=== PATIENT | male | born 1955 | race Caucasian/White ===

== ENCOUNTER 2017-08-25 11:10 | Inpatient (IN) | payer MEDICAID, OTHER ==
[2017-08-25 11:42] LABS: ADD MAN DIFF? NO
[2017-08-25 11:45] LABS: BASOPHIL # 0.1 10^3/ul (0.0-0.1); BASOPHILS % 0.9 % (0.0-2.0); EOSINOPHILS # 0.3 10^3/ul (0.0-0.5); EOSINOPHILS % 3.1 % (0.0-7.0); HEMATOCRIT 45.5 % (42.0-52.0); HEMOGLOBIN 16.2 g/dl (14.0-18.0); LYMPHOCYTES # 2.1 10^3/ul (0.8-2.9); LYMPHOCYTES % 23.2 % (15.0-51.0); MEAN CORPUSCULAR HEMOGLOBIN 30.5 pg (29.0-33.0); MEAN CORPUSCULAR HGB CONC 35.6 g/dl (32.0-37.0); MEAN CORPUSCULAR VOLUME 85.7 fl (82.0-101.0); MEAN PLATELET VOLUME 9.6 fl (7.4-10.4); MONOCYTE # 0.7 10^3/ul (0.3-0.9); MONOCYTES % 7.9 % (0.0-11.0); NEUTROPHIL # 5.8 10^3/ul (1.6-7.5); NEUTROPHILS % 64.6 % (39.0-77.0); PLATELET COUNT 257 10^3/UL (140-415); RED BLOOD COUNT 5.31 10^6/ul (4.70-6.10); RED CELL DISTRIBUTION WIDTH 11.9 % (11.5-14.5)
[2017-08-25 11:59] LABS: HEMOGLOBIN A1C 5.7 % (0-5.9)
[2017-08-25 12:02] LABS: ANION GAP 16 (8-16); BLOOD UREA NITROGEN 21 mg/dl (7-20); CALCIUM 9.3 mg/dl (8.4-10.2); CARBON DIOXIDE 25 mmol/L (21-31); CHLORIDE 106 mmol/L (97-110); CREATININE 1.23 mg/dl (0.61-1.24); GLUCOSE 127 mg/dl (70-220); POTASSIUM 4.5 mmol/L (3.5-5.1); SODIUM 142 mmol/L (135-144)
[2017-08-25 12:03] LABS: INR 1.09; PROTIME 14.3 Sec (11.9-14.9); PT RATIO 1.1
[2017-08-25 12:04] LABS: PARTIAL THROMBOPLASTIN TIME 30.3 Sec (25.0-35.0)
[2017-08-25 12:16] LABS: TROPONIN-I < 0.012 ng/ml (0.00-0.12)
[2017-08-25] MEDS: IOHEXOL 0 ML (12:38)
[2017-08-25] MEDS: SOD CHLORIDE 0.9% 100 ML (12:38)
[2017-08-25] MEDS: IODIXANOL LOCM 100 ML BTL (12:38)
[2017-08-25] MEDS: ASPIRIN 325 MG TAB PO ×2 (12:54→13:11)
[2017-08-25 13:00] LABS: ADD UMIC NO; UR ASCORBIC ACID 20 mg/dL (NEGATIVE); UR BILIRUBIN (Dip) NEGATIVE (NEGATIVE); UR BLOOD (Dip) NEGATIVE (NEGATIVE); UR CLARITY CLEAR (CLEAR); UR COLOR YELLOW (YELLOW); UR GLUCOSE (Dip) NEGATIVE (NEGATIVE); UR KETONES (Dip) NEGATIVE (NEGATIVE); UR LEUKOCYTE ESTERASE (Dip) NEGATIVE Leu/ul (NEGATIVE); UR NITRITE (Dip) NEGATIVE (NEGATIVE); UR SPECIFIC GRAVITY (Dip) 1.012 (1.003-1.030); UR TOTAL PROTEIN (Dip) NEGATIVE (NEGATIVE); UR UROBILINOGEN (Dip) NEGATIVE (NEGATIVE)
[2017-08-25] MEDS: ASPIRIN 300 MG SUPP PR (13:13)
[2017-08-25 13:15] LABS: AMPHETAMINE/METHAMPHETAMINE Negative (NEGATIVE); BARBITURATES Negative (NEGATIVE); BENZODIAZEPINES Negative (NEGATIVE); CANNABINOIDS Negative (NEGATIVE); COCAINE Negative (NEGATIVE); OPIATES Negative (NEGATIVE)
[2017-08-25] MEDS ORDERED: ACETAMINOPHEN 325 MG TAB PO ×2 (14:00→15:30)
[2017-08-25] MEDS ORDERED: ONDANSETRON 4 MG INJ IV ×2 (14:00→15:30)
[2017-08-25] MEDS: LORAZEPAM 2 MG INJ IV (14:54)
[2017-08-25] MEDS ORDERED: ZOLPIDEM 5 MG TAB PO (15:30)
[2017-08-25] MEDS ORDERED: LORAZEPAM 2 MG INJ IV (15:30)
[2017-08-25] MEDS ORDERED: HYDROCODONE/APAP (5/325) TAB PO (15:30)
[2017-08-25] MEDS ORDERED: morphine 2 MG INJ IV (15:30)
[2017-08-25] MEDS: SOD CHLORIDE 0.9% 1,000 ML IV (15:57)
[2017-08-25 16:09] LABS: MAGNESIUM 2.2 mg/dl (1.7-2.5)
[2017-08-25 18:55] LABS: CREATINE KINASE 139 IU/L (23-200)
[2017-08-25 19:08] LABS: CK INDEX 1.6
[2017-08-25 19:09] LABS: CK-MB 2.23 ng/ml (0.0-2.4); TROPONIN-I < 0.012 ng/ml (0.00-0.12)
[2017-08-25] MEDS: FAMOTIDINE 20 MG INJ IV (21:01)
[2017-08-25 23:56] LABS: CREATINE KINASE 114 IU/L (23-200)
[2017-08-26 00:10] LABS: CK INDEX 1.7
[2017-08-26 00:11] LABS: CK-MB 1.96 ng/ml (0.0-2.4); TROPONIN-I < 0.012 ng/ml (0.00-0.12)
[2017-08-26] MEDS: ASPIRIN (EC) 325 MG TAB PO (09:02)
[2017-08-26] MEDS: FAMOTIDINE 20 MG INJ IV ×2 (09:02→21:10)
[2017-08-26 09:48] LABS: ADD MAN DIFF? NO
[2017-08-26 09:56] LABS: BASOPHIL # 0.1 10^3/ul (0.0-0.1); BASOPHILS % 1.2 % (0.0-2.0); EOSINOPHILS # 0.2 10^3/ul (0.0-0.5); EOSINOPHILS % 3.5 % (0.0-7.0); HEMATOCRIT 45.9 % (42.0-52.0); HEMOGLOBIN 15.9 g/dl (14.0-18.0); LYMPHOCYTES % 29.9 % (15.0-51.0); MEAN CORPUSCULAR HEMOGLOBIN 30.3 pg (29.0-33.0); MEAN CORPUSCULAR HGB CONC 34.6 g/dl (32.0-37.0); MEAN CORPUSCULAR VOLUME 87.6 fl (82.0-101.0); MEAN PLATELET VOLUME 9.7 fl (7.4-10.4); MONOCYTE # 0.6 10^3/ul (0.3-0.9); MONOCYTES % 8.1 % (0.0-11.0); NEUTROPHIL # 3.9 10^3/ul (1.6-7.5); NEUTROPHILS % 57.2 % (39.0-77.0); PLATELET COUNT 243 10^3/UL (140-415); RED BLOOD COUNT 5.24 10^6/ul (4.70-6.10)
[2017-08-26 09:56] LABS: WHITE BLOOD COUNT 6.8 10^3/ul (4.8-10.8)
[2017-08-26 10:08] LABS: ALANINE AMINOTRANSFERASE 37 IU/L (13-69); ALBUMIN 4.4 g/dl (3.3-4.9); ALBUMIN/GLOBULIN RATIO 1.22; ALKALINE PHOSPHATASE 82 IU/L (42-121); ANION GAP 15 (8-16); ASPARTATE AMINO TRANSFERASE 26 IU/L (15-46); BILIRUBIN,INDIRECT 0.6 mg/dl (0-1.1); BILIRUBIN,TOTAL 0.6 mg/dl (0.2-1.3); BLOOD UREA NITROGEN 17 mg/dl (7-20); CALCIUM 9.1 mg/dl (8.4-10.2); CARBON DIOXIDE 23 mmol/L (21-31); CHLORIDE 108 mmol/L (97-110); CHOL/HDL RATIO 5.4 RATIO; CHOLESTEROL 195 mg/dl (100-200); CREATININE 1.11 mg/dl (0.61-1.24); GLUCOSE 110 mg/dl (70-220); HDL CHOLESTEROL 36 mg/dl (30-78); LDL CHOLESTEROL,CALCULATED 135 mg/dl; POTASSIUM 4.3 mmol/L (3.5-5.1); SODIUM 142 mmol/L (135-144); TRIGLYCERIDES 118 mg/dl (0-149)
[2017-08-26 10:12] LABS: MAGNESIUM 2.4 mg/dl (1.7-2.5)
[2017-08-26] MEDS: ENOXAPARIN 40 MG/0.4 ML SYG SC (18:55)
[2017-08-26] MEDS: ATORVASTATIN 80 MG TAB PO (21:10)
[2017-08-27] MEDS: ASPIRIN (EC) 325 MG TAB PO (08:31)
[2017-08-27] MEDS: FAMOTIDINE 20 MG INJ IV ×2 (08:31→20:49)
[2017-08-27] MEDS: ENOXAPARIN 40 MG/0.4 ML SYG SC (08:37)
[2017-08-27 08:49] LABS: ADD MAN DIFF? NO
[2017-08-27 08:53] LABS: WHITE BLOOD COUNT 7.4 10^3/ul (4.8-10.8)
[2017-08-27 08:53] LABS: BASOPHIL # 0.1 10^3/ul (0.0-0.1); BASOPHILS % 1.2 % (0.0-2.0); EOSINOPHILS # 0.4 10^3/ul (0.0-0.5); EOSINOPHILS % 4.9 % (0.0-7.0); HEMATOCRIT 47.1 % (42.0-52.0); HEMOGLOBIN 16.4 g/dl (14.0-18.0); LYMPHOCYTES # 2.2 10^3/ul (0.8-2.9); LYMPHOCYTES % 29.2 % (15.0-51.0); MEAN CORPUSCULAR HEMOGLOBIN 30.5 pg (29.0-33.0); MEAN CORPUSCULAR HGB CONC 34.8 g/dl (32.0-37.0); MEAN CORPUSCULAR VOLUME 87.7 fl (82.0-101.0); MEAN PLATELET VOLUME 10.1 fl (7.4-10.4); MONOCYTE # 0.6 10^3/ul (0.3-0.9); MONOCYTES % 7.6 % (0.0-11.0); NEUTROPHIL # 4.2 10^3/ul (1.6-7.5); PLATELET COUNT 263 10^3/UL (140-415); RED BLOOD COUNT 5.37 10^6/ul (4.70-6.10); RED CELL DISTRIBUTION WIDTH 11.9 % (11.5-14.5)
[2017-08-27 09:36] LABS: ANION GAP 17 (8-16); BLOOD UREA NITROGEN 18 mg/dl (7-20); CALCIUM 9.3 mg/dl (8.4-10.2); CARBON DIOXIDE 24 mmol/L (21-31); CHLORIDE 107 mmol/L (97-110); CREATININE 1.28 mg/dl (0.61-1.24); GLUCOSE 93 mg/dl (70-220); POTASSIUM 4.3 mmol/L (3.5-5.1); SODIUM 144 mmol/L (135-144)
[2017-08-27] MEDS: ATORVASTATIN 80 MG TAB PO (20:49)
[2017-08-28 08:20] LABS: ANION GAP 17 (8-16); BLOOD UREA NITROGEN 20 mg/dl (7-20); CALCIUM 9.3 mg/dl (8.4-10.2); CARBON DIOXIDE 24 mmol/L (21-31); CHLORIDE 105 mmol/L (97-110); CREATININE 1.29 mg/dl (0.61-1.24); GLUCOSE 95 mg/dl (70-220); POTASSIUM 4.3 mmol/L (3.5-5.1); SODIUM 142 mmol/L (135-144)
[2017-08-28] MEDS: ASPIRIN (EC) 325 MG TAB PO (08:35)
[2017-08-28] MEDS: FAMOTIDINE 20 MG INJ IV (08:35)
[2017-08-28] MEDS: ENOXAPARIN 40 MG/0.4 ML SYG SC (08:38)
== END 2017-08-28 16:15 | disposition home health service (06) | DRG 66 ==
LOC: E/R 11:10 → MS4 13:35
DX: I63.9 Cerebral infarction, unspecified (principal); I10 Essential (primary) hypertension; R29.703 NIHSS score 3; J35.1 Hypertrophy of tonsils; I25.10 Atherosclerotic heart disease of native coronary artery without angina pectoris; E78.5 Hyperlipidemia, unspecified; L80 Vitiligo; R91.1 Solitary pulmonary nodule; I65.02 Occlusion and stenosis of left vertebral artery; Z95.1 Presence of aortocoronary bypass graft
CPT/HCPCS: 36415; 70450; 70496; 70498; 70551; 71045; 80048; 80053; 80061; 80307; 81003; 82550; 82553; 83036; 83735; 84443; 84484; 85025; 85610; 85730; 92526; 92610; 93005; 93306; 97110; 97116; 97161; 97165; 97530; 97535; 99291-25

== ENCOUNTER 2018-02-18 13:20 | Inpatient (IN) | payer MEDICAID ==
[2018-02-18] MEDS: SODIUM CHLORIDE 0.9% 1L BAG IV* (14:19)
[2018-02-18] MEDS: ACETAMINOPHEN 325 MG TAB PO (14:20)
[2018-02-18 14:24] LABS: ADD MAN DIFF? NO
[2018-02-18 14:49] LABS: INR 1.08; PROTIME 14.1 Sec (11.9-14.9); PT RATIO 1.1
[2018-02-18 14:49] LABS: LACTIC ACID 1.7 mmol/L (0.5-2.0)
[2018-02-18 14:50] LABS: PARTIAL THROMBOPLASTIN TIME 32.8 Sec (25.0-35.0)
[2018-02-18 14:54] LABS: WHITE BLOOD COUNT 10.1 10^3/ul (4.8-10.8)
[2018-02-18 14:54] LABS: BASOPHIL # 0.1 10^3/ul (0.0-0.1); BASOPHILS % 0.5 % (0.0-2.0); EOSINOPHILS % 0.1 % (0.0-7.0); HEMATOCRIT 40.3 % (42.0-52.0); HEMOGLOBIN 14.2 g/dl (14.0-18.0); LYMPHOCYTES # 1.4 10^3/ul (0.8-2.9); LYMPHOCYTES % 13.4 % (15.0-51.0); MEAN CORPUSCULAR HEMOGLOBIN 30.6 pg (29.0-33.0); MEAN CORPUSCULAR HGB CONC 35.2 g/dl (32.0-37.0); MEAN CORPUSCULAR VOLUME 86.9 fl (82.0-101.0); MEAN PLATELET VOLUME 9.7 fl (7.4-10.4); MONOCYTE # 0.9 10^3/ul (0.3-0.9); MONOCYTES % 9.2 % (0.0-11.0); NEUTROPHIL # 7.7 10^3/ul (1.6-7.5); NEUTROPHILS % 76.4 % (39.0-77.0); PLATELET COUNT 277 10^3/UL (140-415); RED BLOOD COUNT 4.64 10^6/ul (4.70-6.10); RED CELL DISTRIBUTION WIDTH 12.1 % (11.5-14.5)
[2018-02-18 15:57] LABS: ERYTHROCYTE SEDIMENTATION RATE 45 mm/Hr (0-20)
[2018-02-18] MEDS: LIDOCAINE 1% (MDV) 10 ML INJ INJ (16:29)
[2018-02-18 18:48] LABS: LACTIC ACID 0.9 mmol/L (0.5-2.0)
[2018-02-18] MEDS: KETOROLAC 15 MG INJ IV (19:06)
[2018-02-18] MEDS: morphine 4 MG/ML VIAL IV (19:06)
[2018-02-18] MEDS: PIPER-TAZO 3.375 GM IV (PMX) 100 ML IVPB (19:06)
[2018-02-18] MEDS: ONDANSETRON 4 MG INJ IV (19:06)
[2018-02-18] MEDS ORDERED: ONDANSETRON 4 MG INJ IV (20:00)
[2018-02-18] MEDS ORDERED: ACETAMINOPHEN 325 MG TAB PO (20:00)
[2018-02-18] MEDS: VANCOMYCIN 1 GM (PMX) 250 ML IVPB (20:24)
[2018-02-18 21:28] LABS: ANION GAP 15 (8-16); BLOOD UREA NITROGEN 15 mg/dl (7-20); CALCIUM 8.4 mg/dl (8.4-10.2); CARBON DIOXIDE 22 mmol/L (21-31); CHLORIDE 106 mmol/L (97-110); CREATININE 1.09 mg/dl (0.61-1.24); GLUCOSE 137 mg/dl (70-220); POTASSIUM 3.9 mmol/L (3.5-5.1); SODIUM 139 mmol/L (135-144)
[2018-02-19] MEDS ORDERED: ACETAMINOPHEN 325 MG TAB PO (01:00)
[2018-02-19 02:38] LABS: ADD MAN DIFF? NO
[2018-02-19 02:40] LABS: BASOPHIL # 0.1 10^3/ul (0.0-0.1); BASOPHILS % 0.8 % (0.0-2.0); EOSINOPHILS # 0.3 10^3/ul (0.0-0.5); HEMATOCRIT 40.1 % (42.0-52.0); HEMOGLOBIN 13.6 g/dl (14.0-18.0); LYMPHOCYTES # 2.6 10^3/ul (0.8-2.9); LYMPHOCYTES % 28.4 % (15.0-51.0); MEAN CORPUSCULAR HEMOGLOBIN 30.4 pg (29.0-33.0); MEAN CORPUSCULAR HGB CONC 33.9 g/dl (32.0-37.0); MEAN CORPUSCULAR VOLUME 89.5 fl (82.0-101.0); MEAN PLATELET VOLUME 9.7 fl (7.4-10.4); MONOCYTE # 0.9 10^3/ul (0.3-0.9); MONOCYTES % 10.2 % (0.0-11.0); NEUTROPHIL # 5.3 10^3/ul (1.6-7.5); NEUTROPHILS % 57.3 % (39.0-77.0); PLATELET COUNT 243 10^3/UL (140-415); RED BLOOD COUNT 4.48 10^6/ul (4.70-6.10); RED CELL DISTRIBUTION WIDTH 12.1 % (11.5-14.5)
[2018-02-19 02:40] LABS: WHITE BLOOD COUNT 9.3 10^3/ul (4.8-10.8)
[2018-02-19 02:59] LABS: ANION GAP 15 (8-16); BLOOD UREA NITROGEN 16 mg/dl (7-20); CALCIUM 8.6 mg/dl (8.4-10.2); CARBON DIOXIDE 26 mmol/L (21-31); CHLORIDE 105 mmol/L (97-110); CREATININE 1.12 mg/dl (0.61-1.24); GLUCOSE 100 mg/dl (70-220); MAGNESIUM 2.3 mg/dl (1.7-2.5); PHOSPHORUS 3.5 mg/dl (2.5-4.9); POTASSIUM 4.5 mmol/L (3.5-5.1); SODIUM 141 mmol/L (135-144)
[2018-02-19] MEDS ORDERED: VANCOMYCIN IV PER PHARMACY XX (07:00)
[2018-02-19] MEDS: AMLODIPINE 10 MG TAB PO (08:29)
[2018-02-19] MEDS: ALLOPURINOL 300 MG TAB PO (08:29)
[2018-02-19] MEDS: HYDROCODONE/APAP (5/325) TAB PO ×2 (08:31→17:30)
[2018-02-19] MEDS: HEPARIN 5,000 UNIT/0.5 ML VIAL SC ×2 (08:35→20:35)
[2018-02-19] MEDS ORDERED: ASPIRIN 325 MG PO (09:00)
[2018-02-19] MEDS: CEFEPIME 1GM/50 ML (PMX) 50 ML IVPB ×2 (09:52→20:33)
[2018-02-19] MEDS: ASPIRIN (EC) 325 MG TAB PO (10:28)
[2018-02-19] MEDS: VANCOMYCIN 1.25 GM in SOD CHLORIDE 0.9% 250 ML IVPB (10:29)
[2018-02-19] MEDS: ONDANSETRON 4 MG INJ IV (10:56)
[2018-02-19 14:42] LABS: URIC ACID 5.1 mg/dl (3.1-7.9)
[2018-02-19] MEDS: ATORVASTATIN 80 MG TAB PO (20:33)
[2018-02-19] MEDS: VANCOMYCIN 1 GM 250 ML IVPB (21:19)
[2018-02-20] MEDS: HYDROCODONE/APAP (5/325) TAB PO ×2 (04:49→20:27)
[2018-02-20 06:26] LABS: ADD MAN DIFF? NO
[2018-02-20 06:30] LABS: WHITE BLOOD COUNT 10.5 10^3/ul (4.8-10.8)
[2018-02-20 06:30] LABS: BASOPHIL # 0.1 10^3/ul (0.0-0.1); BASOPHILS % 0.7 % (0.0-2.0); EOSINOPHILS # 0.2 10^3/ul (0.0-0.5); EOSINOPHILS % 1.6 % (0.0-7.0); HEMATOCRIT 39.8 % (42.0-52.0); HEMOGLOBIN 13.8 g/dl (14.0-18.0); LYMPHOCYTES # 1.4 10^3/ul (0.8-2.9); LYMPHOCYTES % 13.5 % (15.0-51.0); MEAN CORPUSCULAR HEMOGLOBIN 30.7 pg (29.0-33.0); MEAN CORPUSCULAR HGB CONC 34.7 g/dl (32.0-37.0); MEAN CORPUSCULAR VOLUME 88.6 fl (82.0-101.0); MEAN PLATELET VOLUME 9.9 fl (7.4-10.4); MONOCYTE # 0.9 10^3/ul (0.3-0.9); MONOCYTES % 8.5 % (0.0-11.0); NEUTROPHIL # 7.9 10^3/ul (1.6-7.5); NEUTROPHILS % 75.4 % (39.0-77.0); PLATELET COUNT 264 10^3/UL (140-415); RED BLOOD COUNT 4.49 10^6/ul (4.70-6.10)
[2018-02-20 06:59] LABS: ANION GAP 12 (8-16); BLOOD UREA NITROGEN 18 mg/dl (7-20); CALCIUM 8.8 mg/dl (8.4-10.2); CARBON DIOXIDE 25 mmol/L (21-31); CHLORIDE 105 mmol/L (97-110); CREATININE 1.11 mg/dl (0.61-1.24); GLUCOSE 111 mg/dl (70-220); MAGNESIUM 2.3 mg/dl (1.7-2.5); PHOSPHORUS 3.9 mg/dl (2.5-4.9); POTASSIUM 4.6 mmol/L (3.5-5.1); SODIUM 137 mmol/L (135-144)
[2018-02-20] MEDS: CEFEPIME 1GM/50 ML (PMX) 50 ML IVPB ×2 (08:49→20:19)
[2018-02-20] MEDS: HEPARIN 5,000 UNIT/0.5 ML VIAL SC ×2 (08:49→20:19)
[2018-02-20] MEDS: VANCOMYCIN 1 GM 250 ML IVPB ×2 (08:49→21:30)
[2018-02-20] MEDS: ASPIRIN (EC) 325 MG TAB PO (08:50)
[2018-02-20] MEDS: ALLOPURINOL 300 MG TAB PO (08:50)
[2018-02-20] MEDS: AMLODIPINE 10 MG TAB PO (08:50)
[2018-02-20] MEDS: HYDROCODONE/APAP (10/325) TAB PO (11:30)
[2018-02-20] MEDS: ATORVASTATIN 80 MG TAB PO (20:18)
[2018-02-20 20:44] LABS: VANCOMYCIN,TROUGH 15.1 ug/ml (10.0-20.0)
[2018-02-21] MEDS: HYDROCODONE/APAP (5/325) TAB PO ×2 (02:41→11:08)
[2018-02-21] MEDS: CEFEPIME 1GM/50 ML (PMX) 50 ML IVPB ×2 (08:56→21:03)
[2018-02-21] MEDS: ALLOPURINOL 300 MG TAB PO (08:59)
[2018-02-21] MEDS: VANCOMYCIN 1 GM 250 ML IVPB ×2 (09:00→21:40)
[2018-02-21] MEDS: ASPIRIN (EC) 325 MG TAB PO (09:00)
[2018-02-21] MEDS: HEPARIN 5,000 UNIT/0.5 ML VIAL SC ×2 (09:00→21:04)
[2018-02-21] MEDS: AMLODIPINE 10 MG TAB PO (09:00)
[2018-02-21] MEDS: COLCHICINE 0.6 MG TAB PO ×2 (15:41→22:45)
[2018-02-21] MEDS: ATORVASTATIN 80 MG TAB PO (21:03)
[2018-02-21] MEDS: HYDROCODONE/APAP (10/325) TAB PO (22:46)
[2018-02-22 06:11] LABS: CREATININE 0.97 mg/dl (0.61-1.24)
[2018-02-22 06:11] LABS: BLOOD UREA NITROGEN 18 mg/dl (7-20)
[2018-02-22] MEDS: CEFEPIME 1GM/50 ML (PMX) 50 ML IVPB ×2 (08:09→20:52)
[2018-02-22] MEDS: HEPARIN 5,000 UNIT/0.5 ML VIAL SC ×2 (08:09→20:51)
[2018-02-22] MEDS: ASPIRIN (EC) 325 MG TAB PO (08:10)
[2018-02-22] MEDS: ALLOPURINOL 300 MG TAB PO (08:10)
[2018-02-22] MEDS: COLCHICINE 0.6 MG TAB PO ×2 (08:10→20:50)
[2018-02-22] MEDS: AMLODIPINE 10 MG TAB PO (08:11)
[2018-02-22] MEDS: VANCOMYCIN 1 GM 250 ML IVPB ×2 (09:18→21:40)
[2018-02-22] MEDS: LIDOCAINE 1% (MPF) 5 ML VIAL (12:22)
[2018-02-22 12:28] LABS: SYN FLD MN % 20.2 &; SYN FLD PMN % 79.8 % (0.0-25.0); SYN FLD WBC 1896 /cmm (0-150)
[2018-02-22 12:48] LABS: SYN FLD SOURCE LEFT KNEE
[2018-02-22 12:49] LABS: SYN FLD CLARITY CLOUDY; SYN FLD COLOR YELLOW; SYN FLD CRYSTALS NO CRYSTALS SEEN (None seen)
[2018-02-22] MEDS: ATORVASTATIN 80 MG TAB PO (20:50)
[2018-02-23 05:28] LABS: ADD MAN DIFF? NO
[2018-02-23 05:34] LABS: BASOPHIL # 0.1 10^3/ul (0.0-0.1); BASOPHILS % 0.5 % (0.0-2.0); EOSINOPHILS # 0.4 10^3/ul (0.0-0.5); EOSINOPHILS % 3.8 % (0.0-7.0); HEMATOCRIT 39.7 % (42.0-52.0); HEMOGLOBIN 13.6 g/dl (14.0-18.0); LYMPHOCYTES # 2.4 10^3/ul (0.8-2.9); MEAN CORPUSCULAR HEMOGLOBIN 29.8 pg (29.0-33.0); MEAN CORPUSCULAR HGB CONC 34.3 g/dl (32.0-37.0); MEAN CORPUSCULAR VOLUME 87.1 fl (82.0-101.0); MEAN PLATELET VOLUME 9.7 fl (7.4-10.4); MONOCYTE # 1.1 10^3/ul (0.3-0.9); MONOCYTES % 10.1 % (0.0-11.0); NEUTROPHIL # 6.5 10^3/ul (1.6-7.5); NEUTROPHILS % 62.5 % (39.0-77.0); PLATELET COUNT 310 10^3/UL (140-415); RED BLOOD COUNT 4.56 10^6/ul (4.70-6.10); RED CELL DISTRIBUTION WIDTH 11.9 % (11.5-14.5)
[2018-02-23 05:34] LABS: WHITE BLOOD COUNT 10.4 10^3/ul (4.8-10.8)
[2018-02-23 06:08] LABS: ANION GAP 13 (8-16); BLOOD UREA NITROGEN 19 mg/dl (7-20); CALCIUM 8.9 mg/dl (8.4-10.2); CARBON DIOXIDE 26 mmol/L (21-31); CHLORIDE 101 mmol/L (97-110); CREATININE 0.99 mg/dl (0.61-1.24); GLUCOSE 114 mg/dl (70-220); POTASSIUM 3.9 mmol/L (3.5-5.1); SODIUM 136 mmol/L (135-144)
[2018-02-23] MEDS: HEPARIN 5,000 UNIT/0.5 ML VIAL SC ×2 (08:26→20:41)
[2018-02-23] MEDS: COLCHICINE 0.6 MG TAB PO ×2 (08:26→20:37)
[2018-02-23] MEDS: ASPIRIN (EC) 325 MG TAB PO (08:26)
[2018-02-23] MEDS: ALLOPURINOL 300 MG TAB PO (08:26)
[2018-02-23] MEDS: CEFEPIME 1GM/50 ML (PMX) 50 ML IVPB ×2 (08:27→20:36)
[2018-02-23] MEDS: AMLODIPINE 10 MG TAB PO (08:27)
[2018-02-23] MEDS: VANCOMYCIN 1 GM 250 ML IVPB (09:07)
[2018-02-23] MEDS: predniSONE 20 MG TAB PO (12:27)
[2018-02-23 15:08] LABS: COMPLEMENT C3 167 mg/dl (88-165); COMPLEMENT C4 29 mg/dl (14-44)
[2018-02-23] MEDS: NAPROXEN 500 MG TAB PO (18:08)
[2018-02-23] MEDS: BETAMET NA PHOS/AC(6 MG/ML) 5ML INJ INJ (19:48)
[2018-02-23] MEDS: BUPIVACAINE 0.5%/EPI (SDV) 30 ML INJ INJ (19:52)
[2018-02-23] MEDS: ATORVASTATIN 80 MG TAB PO (20:41)
[2018-02-23] MEDS ORDERED: NAPROXEN 250 MG TAB PO (21:00)
[2018-02-24] MEDS: HEPARIN 5,000 UNIT/0.5 ML VIAL SC (08:53)
[2018-02-24] MEDS: ALLOPURINOL 300 MG TAB PO (08:54)
[2018-02-24] MEDS: predniSONE 20 MG TAB PO (08:54)
[2018-02-24] MEDS: COLCHICINE 0.6 MG TAB PO (08:54)
[2018-02-24] MEDS: NAPROXEN 500 MG TAB PO (08:54)
[2018-02-24] MEDS: AMLODIPINE 10 MG TAB PO (08:54)
[2018-02-24] MEDS: CEFEPIME 1GM/50 ML (PMX) 50 ML IVPB (08:54)
[2018-02-24 16:41] LABS: RHEUMATOID FACTOR NEGATIVE (NEGATIVE)
[2018-02-25 13:37] LABS: ANA SCREEN NEGATIVE (NEGATIVE)
[2018-02-25 18:06] LABS: CYCLIC CITRULLINATED PEP IGG <16 UNITS
== END 2018-02-24 14:33 | disposition home or self-care (01) | DRG 550 ==
LOC: E/R 13:20 → PP2 19:38
PROVIDERS: Internal Medicine
PROC: 0S9D3ZX Drainage of Left Knee Joint, Percutaneous Approach, Diagnostic (ICD-10-PCS; principal; 2018-02-18)
DX: M00.9 Pyogenic arthritis, unspecified (principal); M10.9 Gout, unspecified; I10 Essential (primary) hypertension; I25.10 Atherosclerotic heart disease of native coronary artery without angina pectoris; Z95.1 Presence of aortocoronary bypass graft; F32.9 Major depressive disorder, single episode, unspecified
CPT/HCPCS: 36415; 71045; 73562; 76942; 80048; 80202; 82565; 83605; 83735; 84100; 84520; 84560; 85025; 85610; 85651; 85730; 86038; 86140; 86160; 86200; 86430; 87040; 87070; 89060; 93005; 93971; 96365; 96375; 97110; 97116; 97161; 99285-25

== ENCOUNTER 2018-05-25 13:06 | Emergency (ER) | payer MEDICAID | END 2018-05-25 15:51 | disposition home or self-care (01) | LOC: FTE 13:06 | DX: H61.23 Impacted cerumen, bilateral (principal); H93.93 Unspecified disorder of ear, bilateral; I10 Essential (primary) hypertension; I25.10 Atherosclerotic heart disease of native coronary artery without angina pectoris; Z95.1 Presence of aortocoronary bypass graft | CPT/HCPCS: 69209; 99282-25 ==

== ENCOUNTER 2019-01-11 13:22 | Emergency (ER) | payer MEDICAID ==
[2019-01-11] MEDS: HYDROCODONE/APAP (5/325) TAB PO (14:21)
[2019-01-11] MEDS: ONDANSETRON (ODT) 4 MG TAB ODT (14:21)
== END 2019-01-11 15:36 | disposition home or self-care (01) ==
LOC: FTE 13:22
DX: M19.90 Unspecified osteoarthritis, unspecified site (principal); I10 Essential (primary) hypertension; I25.10 Atherosclerotic heart disease of native coronary artery without angina pectoris; Z95.1 Presence of aortocoronary bypass graft
CPT/HCPCS: 73562; 99283-25